=== PATIENT | female | born 1955 | race Caucasian/White ===

== ENCOUNTER 2024-12-20 03:17 | Emergency (ER) | payer OTHER ==
[2024-12-20 03:29] VITALS: RESP 18; BMI 26.9
[2024-12-20] MEDS ORDERED: ACETAMINOPHEN INJECTION 100 ML ONE (04:26)
[2024-12-20] MEDS ORDERED: METOCLOPRAMIDE HCL 10 MG TABLET (FP) PO ONE (04:26)
[2024-12-20] MEDS ORDERED: FAMOTIDINE 20 MG/50 ML IVPB 20 MG/50 ML MG IVPB ONE (04:28)
[2024-12-20] MEDS ORDERED: MAG HYDROX/AL HYDROX/SIMETH 30 ML UNIT-DOSE CUP ONE (04:28)
[2024-12-20] MEDS: ACETAMINOPHEN 1000 MG/100 ML BAG IVPB ONE (04:29)
[2024-12-20] MEDS: SODIUM CHLORIDE 0.9% 500 ML INFUS.BAG IV ONE (04:29)
[2024-12-20] MEDS: METOCLOPRAMIDE HCL 10 MG TABLET (FP) PO ONE (04:29)
[2024-12-20] MEDS: MAG HYDROX/AL HYDROX/SIMETH 30 ML UNIT-DOSE CUP PO ONE (04:29)
[2024-12-20] MEDS: FAMOTIDINE 20 MG/50 ML IVPB 20 MG/50 ML MG IVPB ONE (04:29)
[2024-12-20 05:09] LABS: ABSOLUTE IMMATURE GRANULOCYTES 0.03 x10^3/uL (0.0-0.031); BASOPHILS # 0.06 x10^3/uL (0.01-0.08); EOSINOPHILS # 0.21 x10^3/uL (0.04-0.36); HEMATOCRIT 41.8 % (34.1-44.9); HEMOGLOBIN 13.2 g/dL (11.2-15.7); MCHC 31.6 g/dl (32.2-35.5); MEAN CELL VOLUME 92.9 fl (79.4-94.8); MEAN PLT VOLUME 9.9 fl (9.4-12.3); MONOCYTE # 0.56 x10^3/uL (0.24-0.86); PLATELET COUNT 332 x10^3/uL (182-369); RDW 12.7 % (12.4-16.4)
[2024-12-20 05:30] LABS: POTASSIUM 4.5 mmol/L (3.5-5.1)
[2024-12-20 05:32] LABS: CALCIUM 9.7 mg/dL (8.5-10.1)
[2024-12-20 05:33] LABS: BLOOD UREA NITROGEN 17.6 mg/dL (7-18)
[2024-12-20 05:36] LABS: CREATININE 0.8 mg/dL (0.55-1.3)
[2024-12-20 05:37] LABS: BILIRUBIN,TOTAL 0.3 mg/dL (0.2-1); TOT PROT 7.1 g/dl (6.4-8.2)
[2024-12-20 08:38] LABS: URINE APPEARANCE CLEAR; URINE BILIRUBIN NEGATIVE (NEGATIVE); URINE COLOR YELLOW; URINE GLUCOSE (UA) 3+ (NEGATIVE); URINE KETONE NEGATIVE (NEGATIVE); URINE LEUK ESTERASE NEGATIVE (NEGATIVE); URINE NITRITE NEGATIVE (NEGATIVE); URINE PROTEIN NEGATIVE (NEGATIVE); URINE UROBILINOGEN 0.2 mg/dL (0.2-1.0)
[2024-12-20 09:37] VITALS: BP 142/75; PULSE 78; TEMP 98
== END 2024-12-20 08:55 | disposition home or self-care (01) ==
LOC: JER 03:17
PROC: 3E033GC Introduction of Other Therapeutic Substance into Peripheral Vein, Percutaneous Approach (ICD-10-PCS; principal; 2024-12-20)
PROC: 3E033NZ Introduction of Analgesics, Hypnotics, Sedatives into Peripheral Vein, Percutaneous Approach (ICD-10-PCS; 2024-12-20)
DX: G43.909 Migraine, unspecified, not intractable, without status migrainosus (principal); R11.2 Nausea with vomiting, unspecified
CPT/HCPCS: 36415; 70470-TC; 70498-TC; 80053; 81003; 83690; 84484; 85025; 93005; 93010; 99285-25; J0131; Q9967

== ENCOUNTER 2025-01-10 18:17 | Inpatient (IN) | payer OTHER ==
[2025-01-10] MEDS ORDERED: ACETAMINOPHEN INJECTION 100 ML ONE (19:52)
[2025-01-10] MEDS ORDERED: FAMOTIDINE 20 MG/50 ML IVPB 20 MG/50 ML MG IVPB ONE (19:52)
[2025-01-10] MEDS ORDERED: ONDANSETRON 4 MG/2 ML VIAL ONE ×2 (19:52→22:54)
[2025-01-10] MEDS: ONDANSETRON 4 MG/2 ML VIAL IVPB ONE ×2 (20:13→22:58)
[2025-01-10] MEDS: SODIUM CHLORIDE 0.9% 500 ML INFUS.BAG IV ONE (20:13)
[2025-01-10] MEDS: ACETAMINOPHEN 1000 MG/100 ML BAG IVPB ONE (20:14)
[2025-01-10 20:17] LABS: BASOPHILS # 0.06 x10^3/uL (0.01-0.08); MCHC 32.7 g/dl (32.2-35.5); MEAN PLT VOLUME 9.6 fl (9.4-12.3)
[2025-01-10 20:19] LABS: ABSOLUTE IMMATURE GRANULOCYTES 0.13 x10^3/uL (0.0-0.031); EOSINOPHIL % 0.1 % (0.7-5.8); EOSINOPHILS # 0.02 x10^3/uL (0.04-0.36); HEMOGLOBIN 14.7 g/dL (11.2-15.7); MEAN CELL VOLUME 90.5 fl (79.4-94.8); MONOCYTE # 0.93 x10^3/uL (0.24-0.86); MONOCYTE % 5.8 % (4.7-12.5); PLATELET COUNT 353 x10^3/uL (182-369); RDW 12.3 % (12.4-16.4)
[2025-01-10] MEDS: FAMOTIDINE 20 MG/50 ML IVPB 20 MG/50 ML MG IVPB ONE (20:41)
[2025-01-10 20:44] LABS: POTASSIUM 3.7 mmol/L (3.5-5.1)
[2025-01-10 20:45] LABS: ALBUMIN 4.2 g/dl (3.4-5.0); BLOOD UREA NITROGEN 8.8 mg/dL (7-18); CALCIUM 9.5 mg/dL (8.5-10.1)
[2025-01-10 20:48] LABS: CREATININE 0.9 mg/dL (0.55-1.3)
[2025-01-10 20:50] LABS: BILIRUBIN,TOTAL 0.4 mg/dL (0.2-1); TOT PROT 7.7 g/dl (6.4-8.2)
[2025-01-10 21:12] LABS: PH,URINE 7.5 (5.0-8.0); URINE APPEARANCE CLOUDY; URINE BILIRUBIN NEGATIVE (NEGATIVE); URINE COLOR DK YELLOW; URINE GLUCOSE (UA) NEGATIVE (NEGATIVE); URINE KETONE NEGATIVE (NEGATIVE); URINE LEUK ESTERASE NEGATIVE (NEGATIVE); URINE NITRITE NEGATIVE (NEGATIVE); URINE PROTEIN TRACE (NEGATIVE); URINE UROBILINOGEN 0.2 mg/dL (0.2-1.0)
[2025-01-10] MEDS ORDERED: CEFTRIAXONE 1 GM/50 ML BAG ONE (23:35)
[2025-01-10] MEDS: CEFTRIAXONE 1,000 MG in DEXTROSE 5%-WATER - 50 ML IVPB ONE (23:40)
[2025-01-11] MEDS ORDERED: morphine SULFATE 4 MG/ML VIAL IVPUSH PRN (01:02)
[2025-01-11] MEDS ORDERED: KETOROLAC TROMETHAMINE 15 MG/ML VIAL IVPUSH PRN (01:07)
[2025-01-11] MEDS ORDERED: ACETAMINOPHEN INJECTION 100 ML ONE (01:59)
[2025-01-11] MEDS ORDERED: KETOROLAC TROMETHAMINE 15 MG/ML VIAL ONE (01:59)
[2025-01-11] MEDS: KETOROLAC TROMETHAMINE 15 MG/ML VIAL IVPUSH ONE (02:11)
[2025-01-11] MEDS: ACETAMINOPHEN 1000 MG/100 ML BAG IVPB SCH (02:11)
[2025-01-11] MEDS: CHOLESTYRAMINE/NUTRASWEET 4 GM PACKET PO SCH (02:40)
[2025-01-11] MEDS: LACTATED RINGERS SOLUTION 1,000 ML IV SCH (02:41)
[2025-01-11] MEDS: AMPICILLIN NA/SULBACTAM NA 1.5 GM in SODIUM CHLORIDE 100 ML IVPB SCH (03:40)
[2025-01-11 04:07] VITALS: BMI 23.6
[2025-01-11] MEDS: QUEtiapine FUMARATE 25 MG TABLET PO SCH (09:16)
[2025-01-11] MEDS: TOPIRAMATE 25 MG TABLET PO SCH (09:16)
[2025-01-11] MEDS: PANTOPRAZOLE SODIUM 40 MG VIAL IVPB SCH (09:16)
[2025-01-11] MEDS: ENOXAPARIN NA (PORCINE) 40 MG/0.4 ML DISP.SYRIN SQ SCH (09:16)
[2025-01-11] MEDS: DULoxetine HCL 20 MG CAPSULE.DR PO SCH (11:15)
[2025-01-11 11:22] LABS: HEMATOCRIT 38.8 % (34.1-44.9); HEMOGLOBIN 12.8 g/dL (11.2-15.7); MEAN CELL VOLUME 90.4 fl (79.4-94.8); MEAN PLT VOLUME 9.9 fl (9.4-12.3); PLATELET COUNT 307 x10^3/uL (182-369); RDW 12.3 % (12.4-16.4)
[2025-01-11 11:40] LABS: POTASSIUM 3.4 mmol/L (3.5-5.1)
[2025-01-11 11:45] LABS: CALCIUM 9.4 mg/dL (8.5-10.1)
[2025-01-11 11:46] LABS: ALBUMIN 3.7 g/dl (3.4-5.0); BLOOD UREA NITROGEN 7.2 mg/dL (7-18)
[2025-01-11 11:49] LABS: CREATININE 0.7 mg/dL (0.55-1.3); PHOSPHOROUS 2.2 mg/dL (2.5-4.9)
[2025-01-11 11:50] LABS: BILIRUBIN,TOTAL 0.6 mg/dL (0.2-1)
[2025-01-11 11:51] LABS: TOT PROT 6.4 g/dl (6.4-8.2)
[2025-01-11 14:23] LABS: COCAINE, UR NEGATIVE (NEGATIVE); METHADONE, UR NEGATIVE (NEGATIVE); OPIATES, URI NEGATIVE (NEGATIVE); PHENCYCLIDINE,URINE NEGATIVE (NEGATIVE); URINE AMPHETAMINES NEGATIVE (NEGATIVE); URINE BARBITURATES NEGATIVE (NEGATIVE); URINE BENZODIAZEPINES NEGATIVE (NEGATIVE)
[2025-01-11] MEDS: POTASSIUM CHLORIDE ORAL LIQUID 20 MEQ/15 ML PO ONE (15:08)
[2025-01-11] MEDS: ONDANSETRON 4 MG/2 ML VIAL IVPUSH PRN (22:42)
[2025-01-11] MEDS: clonazePAM 0.5 MG TABLET PO PRN (22:42)
[2025-01-12 09:45] LABS: ABSOLUTE IMMATURE GRANULOCYTES 0.08 x10^3/uL (0.0-0.031); BASOPHILS # 0.06 x10^3/uL (0.01-0.08); EOSINOPHIL % 1.2 % (0.7-5.8); EOSINOPHILS # 0.16 x10^3/uL (0.04-0.36); HEMATOCRIT 38.8 % (34.1-44.9); HEMOGLOBIN 12.6 g/dL (11.2-15.7); MCHC 32.5 g/dl (32.2-35.5); MEAN CELL VOLUME 90.7 fl (79.4-94.8); MEAN PLT VOLUME 9.6 fl (9.4-12.3); MONOCYTE # 1.06 x10^3/uL (0.24-0.86); MONOCYTE % 7.7 % (4.7-12.5); PLATELET COUNT 304 x10^3/uL (182-369); RDW 12.5 % (12.4-16.4)
[2025-01-12 10:04] LABS: POTASSIUM 3.9 mmol/L (3.5-5.1)
[2025-01-12 10:13] LABS: BLOOD UREA NITROGEN 10.5 mg/dL (7-18); CALCIUM 9.6 mg/dL (8.5-10.1); MAGNESIUM 1.9 mg/dL (1.8-2.4)
[2025-01-12 10:17] LABS: CREATININE 0.8 mg/dL (0.55-1.3); PHOSPHOROUS 3.3 mg/dL (2.5-4.9)
[2025-01-12] MEDS: FAMOTIDINE 10 MG TABLET PO SCH (10:42)
[2025-01-12] MEDS: POLYETHYLENE GLYCOL (HEALTHYLAX) 3350 17 GM PACKET PO SCH (10:43)
[2025-01-12] MEDS: ACETAMINOPHEN 500 MG TABLET (FP) PO ONE (10:44)
[2025-01-12 10:54] VITALS: BP 119/55; PULSE 91; RESP 19; TEMP 99.1
== END 2025-01-12 13:13 | disposition home or self-care (01) | DRG 392 ==
LOC: JER 18:17 → JERBED 23:32 → J5S 01-11 03:19
PROVIDERS: ADMIT Hospitalist
DX: K52.9 Noninfective gastroenteritis and colitis, unspecified (principal); E44.0 Moderate protein-calorie malnutrition; G43.909 Migraine, unspecified, not intractable, without status migrainosus; F32.A Depression, unspecified; F41.9 Anxiety disorder, unspecified; F41.0 Panic disorder [episodic paroxysmal anxiety]; K20.90 Esophagitis, unspecified without bleeding; Z68.23 Body mass index [BMI] 23.0-23.9, adult
CPT/HCPCS: 0241U-QW; 36415; 70450-TC; 74177-TC; 76700-TC; 80048; 80053; 80307; 81003; 82150; 83690; 83735; 84100; 85025; 85027; 86140; 87086; 93005; 93010; 97116-GP; 97161-GP; 99285-25; Q9967